=== PATIENT | male | born 1985 | race Asian ===

== ENCOUNTER 2017-02-18 15:48 | Emergency (ER) | payer MEDICAID ==
[~2017-02-18] VITALS: Ht 175.3 cm; Wt 74.2 kg
[2017-02-18 15:54] VITALS: Ht 175.3 cm; Wt 74.2 kg
[2017-02-18 19:17] VITALS: BP 120/64
== END 2017-02-18 19:17 | disposition home or self-care (01) ==
LOC: ED 15:48
DX: S00.212A Abrasion of left eyelid and periocular area, initial encounter (principal); W22.8XXA Striking against or struck by other objects, initial encounter; Y93.9 Activity, unspecified; Y92.002 Bathroom of unspecified non-institutional (private) residence as the place of occurrence of the external cause; Y99.9 Unspecified external cause status